=== PATIENT | female | born 1940 | race Caucasian/White ===

== ENCOUNTER → 2024-05-18 | Outpatient (CLI) | payer MEDICARE, SELFPAY ==
--- NOTE | 2024-05-18 15:06 | XR_ITS ---
Examination: PA lateral chest 2 views Technique: Upright PA lateral chest 2 views Exam date and time: May 18, 2024 1528 hrs. Indications: Chronic coughing years Findings: Moderate hyperexpansion Normal heart size No pneumonia or pulmonary edema Impression: COPD No pneumonia identified
[2024-05-18 16:43] LABS: Basophils # (Auto) 0.1 Thou/mm3 (0.0-0.2); Basophils % (Auto) 1 % (0-2.5); Eosinophils # (Auto) 0.1 Thou/mm3 (0.0-0.5); Eosinophils % (Auto) 1 % (0-10); Hematocrit 38.6 % (36.0-46.0); Hemoglobin 12.6 g/dL (12.0-16.0); Immature Granulocytes % (Auto) 0 % (0-0); Immature Granulocytes Auto 0.04 Thou/mm3 (0.00-0.00); Lymphocytes # (Auto) 2.4 Thou/mm3 (1.0-4.8); Lymphocytes % (Auto) 27 % (10-50); Mean Corpuscular HGB Conc 32.6 g/dl (31.0-37.0); Mean Corpuscular Hemoglobin 30.5 pg (25.0-35.0); Mean Corpuscular Volume 94 fL (80-100); Monocytes # (Auto) 0.7 Thou/mm3 (0.0-0.8); Monocytes % (Auto) 8 % (0-12); Neutrophils # (Auto) 5.8 Thou/mm3 (1.8-7.7); Neutrophils % (Auto) 63 % (37-80); Nucleated Red Blood Cell % 0 /100 WBC (0); Platelet Count 395 Thou/mm3 (140-440); RDW Standard Deviation 42.5 fL (36.4-46.3); Red Blood Count 4.13 Miln/mm3 (4.00-5.20); White Blood Count 9.1 Thou/mm3 (3.6-11.0)
[2024-05-18 17:11] LABS: Alanine Aminotransferase 21 U/L (10-49); Albumin/Globulin Ratio 1.7 (1.2-2.2); Alkaline Phosphatase 71 U/L (46-116); Anion Gap 9 (7-16); Aspartate Amino Transferase 19 U/L (0-34); BUN/Creatinine Ratio 22 Ratio (12-20); Bilirubin,Total 0.4 mg/dL (0.3-1.2); Blood Urea Nitrogen 28 mg/dL (9-23); Calcium 9.7 mg/dL (8.3-10.6); Calcium (Corrected) 9.7 mg/dL (8.5-10.1); Carbon Dioxide 25.8 mMol/L (20.0-31.0); Chloride 101 mMol/L (98-107); Creatinine (Component) 1.3 mg/dL (0.6-1.3); Globulin 2.3 gm/dL (2.3-3.5); Glucose 95 mg/dL (74-106); Osmolality,Calculated 277 (275-295); Potassium 4.2 mMol/L (3.4-5.1); Sodium 136 mMol/L (136-145); Thyroid Stimulating Hormone 3.42 uIU/mL (0.55-4.78); Total Protein 6.3 gm/dL (5.7-8.2); eGFR 41 See Note
[2024-05-18 18:32] LABS: Urea Breath Test Negative (Negative)
[2024-05-19 13:01] LABS: Cocci Serology, IgM Negative (Negative)
[2024-05-21 10:49] LABS: Cocci Serology, IgG Negative (Negative)
== END | disposition home or self-care (01) ==
LOC: CDIM 15:00 → COPL 15:39
PROVIDERS: PCP Internal Medicine; Referring Provider Internal Medicine; Visit Provider Radiology Diagnostic Radiology
DX: J44.9 Chronic obstructive pulmonary disease, unspecified (principal); E78.5 Hyperlipidemia, unspecified; E03.9 Hypothyroidism, unspecified; R05.9 Cough, unspecified
CPT/HCPCS: 36415; 71046; 80053; 83013; 83014; 84443; 85025; 86331; 86635

== ENCOUNTER → 2024-05-19 | Outpatient (CLI) | payer MEDICARE, BC, SELFPAY ==
[2024-05-19 08:38] LABS: Quantiferon-TB* See Sep Rpt
[2024-05-20 10:14] LABS: Clostridium Difficile PCR Negative (Negative)
== END | disposition home or self-care (01) ==
PROVIDERS: PCP Internal Medicine; Referring Provider Internal Medicine; Visit Provider Internal Medicine
DX: R05.9 Cough, unspecified (principal); R19.7 Diarrhea, unspecified; B96.81 Helicobacter pylori [H. pylori] as the cause of diseases classified elsewhere
CPT/HCPCS: 86480; 87015; 87045; 87046; 87177; 87209; 87493; 87899

== ENCOUNTER → 2024-05-25 | Outpatient (CLI) | payer MEDICARE, BC, SELFPAY | END | disposition home or self-care (01) | LOC: SLDO 16:05 | PROVIDERS: PCP Internal Medicine; Referring Provider Internal Medicine; Visit Provider Internal Medicine | DX: R19.7 Diarrhea, unspecified (principal) | CPT/HCPCS: 87177; 87209 ==

== ENCOUNTER → 2024-07-05 | Outpatient (CLI) | payer MEDICARE, BC, SELFPAY ==
--- NOTE | 2024-07-05 13:20 | XR_ITS ---
Examination: Bone densitometry Date and time of exam:July 05, 2024 1347 hours INDICATIONS: Hysterectomy age 39 calcium 10 years Technique: Lumbar spine and hip total bone mineralization values of an calculated. Peak reference and age match control results have been displayed. Findings: Lumbar spine total bone mineralization is1.137 gm/cm2. This is 0.8 standard deviations above peak reference. This is 3.6 standard deviations above age-matched controls. Hip total bone mineralization is 0.939 gm/cm2 This is 0.0 standard deviations at peak reference. This is 2.2 standard deviations above age-matched controls Impression: There is normal mineralization based on lumbar spine measurements. There is normal mineralization based on hip measurements Hip mineralization is increase 7.6% compared with 11/27/2011
== END | disposition home or self-care (01) ==
LOC: CDIM 13:07
PROVIDERS: PCP Family Medicine; Referring Provider Internal Medicine; Visit Provider Internal Medicine
DX: M81.0 Age-related osteoporosis without current pathological fracture (principal)
CPT/HCPCS: 77080

== ENCOUNTER → 2024-08-13 | Outpatient (CLI) | payer MEDICARE, BC, SELFPAY ==
--- NOTE | 2024-08-13 11:24 | XR_ITS ---
Examination: CT abdomen with intravenous contrast CT pelvis with intravenous contrast 2-D coronal reconstructions 2-D sagittal reconstructions Date and time of exam:August 13, 2024 1206 hours INDICATIONS: Generalized abdominal pain with diarrhea beginning several weeks ago. CTDI: vol (mGy) 7.66 DLP: (mGycm) 392 Technique: Multiple axial sections of the abdomen and pelvis have been obtained. 64 slice high-resolution scanner used. 3 mm axial sections have been obtained, post intravenous injection 30 cc [id number] 2-D sagittal, coronal reconstructions obtained. Low dose protocols were performed. One or more of the following dose reduction techniques were used; automated exposure control, adjustment of the mA and/or KV according to patient size, use of iterative reconstruction technique. Findings: No focal liver or splenic lesions Gallbladder not visualized Common bile duct 12 mm No pancreatic mass Normal adrenal glands No renal or ureteral calculi, no hydronephrosis No bowel obstruction Negative for pneumoperitoneum No pericecal inflammatory change No diverticulitis, sigmoid diverticulosis is noted No bladder mass No pelvic mass Severe osteopenia Advanced disc narrowing L3-L4, L4-L5 IMPRESSION: Enlarged common bile duct 12 mm, recommend hepatobiliary sonography follow-up Colonic diverticulosis, no diverticulitis
== END | disposition home or self-care (01) ==
PROVIDERS: PCP Internal Medicine; Referring Provider Internal Medicine; Visit Provider Internal Medicine
DX: K83.8 Other specified diseases of biliary tract (principal); K57.30 Diverticulosis of large intestine without perforation or abscess without bleeding
CPT/HCPCS: 74177; A4649; Q9967

== ENCOUNTER → 2024-08-13 | Outpatient (CLI) | payer MEDICARE, BC, SELFPAY ==
[2024-08-13 11:37] LABS: Albumin, Serum 4.2 gm/dL (3.4-4.8); Anion Gap 8 (7-16); BUN/Creatinine Ratio 21 Ratio (12-20); Blood Urea Nitrogen 29 mg/dL (9-23); Carbon Dioxide 28.1 mMol/L (20.0-31.0); Chloride 101 mMol/L (98-107); Creatinine (Component) 1.4 mg/dL (0.6-1.3); Glucose 111 mg/dL (74-106); Osmolality,Calculated 280 (275-295); Sodium 137 mMol/L (136-145); eGFR 37 See Note
== END | disposition home or self-care (01) ==
PROVIDERS: PCP Internal Medicine; Referring Provider Internal Medicine; Visit Provider Internal Medicine
DX: N17.9 Acute kidney failure, unspecified (principal)
CPT/HCPCS: 36415; 80069